=== PATIENT | female | born 1960 | race Hispanic/Latino ===

== ENCOUNTER 2020-11-29 10:21 | Emergency (ER) | payer MEDICAID ==
[~2020-11-29] VITALS: Ht 157.5 cm; Wt 79.4 kg
[2020-11-29 11:09] VITALS: BP 130/74
[2020-11-29 11:53] VITALS: BP 130/75
[2020-11-29] MEDS ORDERED: [UNRECOGNIZED DRUG - OTHER] PO (11:59)
[2020-11-29] MEDS ORDERED: LEVETIRACETAM PO (12:01)
[2020-11-29 12:51] LABS: APPEARANCE,URINE Clear (CLEAR); BILIRUBIN,URINE Negative (NEGATIVE); COLOR,URINE Yellow (YELLOW); GLUCOSE, URINE (UA) Negative (NEGATIVE); KETONES,URINE Negative (NEGATIVE); LEUKOCYTE ESTERASE ,URINE Trace (NEGATIVE); NITRATE,URINE Negative (NEGATIVE); OCCULT BLOOD,URINE Small (NEGATIVE); PH,URINE 7.5 (5.0-8.0); PROTEIN,URINE Negative (NEGATIVE)
[2020-11-29 13:00] LABS: BACTERIA,URINE Rare /HPF (None Seen); MUCUS,URINE Few LPF (None Seen); RBC,URINE 0-1 /HPF (0-1); SQUAMOUS EPITHELIAL CELL,UR Rare /HPF (0-2); WBC,URINE 0-1 /HPF (0-1)
[2020-11-29 14:49] VITALS: BP 137/78
== END 2020-11-29 16:15 | disposition home or self-care (01) ==
LOC: EDH 10:21
DX: R56.9 Unspecified convulsions (principal); F41.9 Anxiety disorder, unspecified; F20.9 Schizophrenia, unspecified
CPT/HCPCS: 36415; 80164; 81001

== ENCOUNTER 2022-12-24 11:47 | Emergency (ER) | payer MEDICAID ==
[~2022-12-24] VITALS: Ht 157.5 cm; Wt 73.5 kg
[~2022-12-24 11:47] MED LIST: LEVETIRACETAM PO; [UNRECOGNIZED DRUG - OTHER] PO
[2022-12-24 12:19] LABS: BASOPHILS # (AUTO) 0.06 K/uL (0.00-0.20); BASOPHILS % (AUTO) 0.7 % (0.0-5.0); EOSINOPHILS # (AUTO) 0.18 K/uL (0.00-0.70); EOSINOPHILS % (AUTO) 2.1 % (0.0-8.0); IMMATURE GRANULOCYTE ABSOLUTE 0.04 K/uL (0-1); LYMPHOCYTES # (AUTO) 1.7 K/uL (1.0-4.8); LYMPHOCYTES % (AUTO) 20.3 % (21.0-51.0); MEAN CORPUSCULAR HEMOGLOBIN 29.7 pg (27.0-33.0); MONOCYTES # (AUTO) 0.7 K/uL (0.1-1.0); MONOCYTES % (AUTO) 7.8 % (3.0-13.0); NEUTROPHILS # (AUTO) 5.8 K/uL (1.8-7.7); NEUTROPHILS % (AUTO) 68.6 % (40.0-77.0); PLATELET COUNT (AUTO) 203 K/uL (130-400); RED BLOOD CELL COUNT(AUTO) 4.11 MIL/uL (4.00-5.50); RED CELL DISTRIBUTION WIDTH 15.2 % (11.0-15.5); WHITE BLOOD COUNT (AUTO) 8.5 K/uL (4.8-10.8)
[2022-12-24 12:23] LABS: APPEARANCE,URINE CLEAR (CLEAR); BILIRUBIN,URINE NEGATIVE (NEGATIVE); COLOR,URINE LIGHT-YELLOW (YELLOW); GLUCOSE, URINE (UA) NEGATIVE (NEGATIVE); KETONES,URINE NEGATIVE (NEGATIVE); LEUKOCYTE ESTERASE ,URINE 250 Leu/uL (NEGATIVE); NITRATE,URINE NEGATIVE (NEGATIVE); OCCULT BLOOD,URINE NEGATIVE (NEGATIVE); PH,URINE 6.5 (5.0-8.0); PROTEIN,URINE NEGATIVE (NEGATIVE); UROBILINOGEN,URINE 0.2 mg/dL (0.2-1.0)
[2022-12-24 12:25] LABS: ADD UA MICROSCOPIC YES
[2022-12-24 12:27] LABS: CREATININE 0.7 mg/dL (0.5-1.5); POTASSIUM 3.9 mmol/L (3.5-5.1)
[2022-12-24 12:28] LABS: RBC,URINE 0-1 /HPF (0-1); SQUAMOUS EPITHELIAL CELL,UR RARE /HPF (0-2)
[2022-12-24 12:32] LABS: ALBUMIN 3.2 g/dL (3.5-5.0); BILIRUBIN,TOTAL 0.3 mg/dL (0.2-1.0); MAGNESIUM 2.1 mg/dL (1.80-2.40); TOTAL PROTEIN, SERUM 6.5 g/dL (6.0-8.3)
[2022-12-24 14:42] VITALS: BP 146/82; PULSE 101; RESP 18; O2SAT 98
== END 2022-12-24 15:32 | disposition home or self-care (01) ==
LOC: EDH 11:47
DX: G40.909 Epilepsy, unspecified, not intractable, without status epilepticus (principal); Z91.199 Patient's noncompliance with other medical treatment and regimen due to unspecified reason; F25.9 Schizoaffective disorder, unspecified; E03.9 Hypothyroidism, unspecified
CPT/HCPCS: 36415; 70450; 80053; 80177; 81001; 83735; 85025; 87088; 93005